=== PATIENT | male | born 1970 | race Caucasian/White ===

== ENCOUNTER → 2025-05-18 | Outpatient (CLI) | payer OTHER ==
--- NOTE | 2025-05-18 15:58 | CT ---
EXAMINATION TYPE: CT chest wo/w con CT DLP: 764.10 mGycm, Automated exposure control for dose reduction was used. DATE OF EXAM: 05/18/2025 2:25 PM COMPARISON: None CLINICAL INDICATION:Male, 55 years old with history of R06.02 SHORTNESS OF BREATH; PHH, SOB TECHNIQUE: Multiple axial images were obtained through the chest before and after the uneventful admi nistration of 100 cc of Isovue-300 intravenously . Coronal and sagittal reformats reviewed. FINDINGS: LUNGS/ PLEURA: No pleural effusion, pneumothorax, focal consolidation. No suspicious pulmonary nodule or mass. Minimal biapical pleural-parenchymal scarring. AIRWAY: Patent and unremarkable.. HEART: Cardiomegaly is demonstrated with enlargement of the left ventricle and left atrium. . No maco cardial effusion. No significant coronary artery calcifications. MEDIASTINUM: No evidence of adenopathy. VASCULATURE: No aortic aneurysm. No pulmonary embolism identified. MUSCULOSKELETAL: Remote appearing superior endplate compression deformity versus Schmorl's node invol ving the L1 vertebral body. No retropulsion. Multilevel small Schmorl's nodes. SOFT TISSUES/LYMPH NODES: Unremarkable. LOWER NECK: No significant findings. UPPER ABDOMEN: No significant findings. IMPRESSION: 1. No acute thoracic process. 2. Cardiomegaly. [facility], , 05/18/2025 3:55 PM
== END | disposition home or self-care (01) ==
LOC: RADCTMAIN 14:00
PROVIDERS: ATTEND Internal Medicine
DX: R06.02 Shortness of breath (principal); I51.7 Cardiomegaly
CPT/HCPCS: 71270

== ENCOUNTER → 2025-06-11 | Outpatient (CLI) | payer OTHER ==
[2025-06-11 14:57] LABS: HCT 46.5 % (39.6-50.0); HGB 15.3 g/dL (13.0-17.0); MCH 30.4 pg (27.0-32.0); MCHC 32.9 g/dL (32.0-37.0); MCV 92.3 FL (80.0-97.0); NRBC Per 100 WBC 0 X 10*3/uL (0.00-0.01); Platelet Count 151 X 10*3/uL (140-440); RBC 5.04 X 10*6/uL (4.40-5.60); RDW 12.4 % (11.5-14.5); WBC 8.73 X 10*3/uL (4.50-10.00)
[2025-06-11 15:18] LABS: NT-Pro-B-Type Natriuretic Pept 350 pg/mL (0-125)
[2025-06-11 15:28] LABS: Anion Gap 10.30 mmol/L (4.00-12.00); BUN/Creat Ratio 20.00 Ratio (12.00-20.00); Blood Urea Nitrogen 20.0 mg/dL (9.0-27.0); Carbon Dioxide 24.7 mmol/L (21.6-31.8); Chloride 109 mmol/L (96-109); Glucose 126 mg/dL (70-110); Potassium 5.5 mmol/L (3.5-5.5); Sodium 144 mmol/L (135-145)
[2025-06-11 15:29] LABS: Calcium 9.6 mg/dL (8.7-10.3)
== END | disposition home or self-care (01) ==
LOC: LABWHC1 11:55
PROVIDERS: ATTEND Internal Medicine Cardiovascular Disease
DX: I50.22 Chronic systolic (congestive) heart failure (principal); E78.2 Mixed hyperlipidemia
CPT/HCPCS: 36415; 80048; 83880; 84443; 85027

== ENCOUNTER → 2025-06-22 | Outpatient (CLI) | payer OTHER ==
--- NOTE | 2025-06-22 08:14 | US ---
EXAMINATION TYPE: US Aorta Screening DATE OF EXAM: 06/22/2025 COMPARISON: NONE CLINICAL INDICATION: Male, 55 years old with history of F17.200 CURRENT SMOKER; Hx HTN, DM, and appen dectomy TECHNIQUE: Multiple sonographic images of the abdominal aorta are obtained with grayscale and color D oppler imaging. FINDINGS: EXAM MEASUREMENTS: Abdominal Aorta: Proximal: 2.8 x 1.7 cm Mid: 1.9 x 2.4 cm Distal: 2.2 x 1.7 cm Bifurcation: Right Iliac: 1.2 x 1.7 cm Left Iliac: 1.1 x 1.2 cm OUTREACH COORDINATOR NOTES: Unremarkable exam IMPRESSION: No evidence for aortic aneurysm. No further workup recommended for negative screening aortic aneurysm ultrasound per Society of Vascular [employer] Recommendations. [email or web address] [facility], , 06/22/2025 8:12 AM
[2025-06-22 11:09] LABS: INR 1.02 sec (0.93-1.11); Prothrombin Time 11.6 sec (9.9-11.9)
== END | disposition home or self-care (01) ==
LOC: RADUSWWP 07:29
PROVIDERS: ATTEND Family Medicine
DX: R58 Hemorrhage, not elsewhere classified (principal); F17.200 Nicotine dependence, unspecified, uncomplicated; E11.9 Type 2 diabetes mellitus without complications
CPT/HCPCS: 76706; 85610